=== PATIENT | female | born 1960 | race Caucasian/White ===

== ENCOUNTER → 2023-01-04 10:59 | Outpatient (CLI) | payer OTHER, SELFPAY ==
--- NOTE | ~2023-01-04 | MR_ITS ---
EXAMINATION: MR shoulder RT wo con DATE: 01/04/2023 11:37 INDICATION: One month of right shoulder pain. TECHNIQUE: Magnetic resonance imaging (MRI) of the right shoulder was performed without intravenous c ontrast. Sequences included axial PD-weighted FS FSE, coronal oblique PD-weighted FS FSE, coronal obl ique T2-weighted FS FSE, sagittal PD-weighted FS FSE, and sagittal T1-weighted SE. COMPARISON: Radiographs dated 12/21/2022 FINDINGS: Coracoacromial arch: The acromion undersurface is flat in morphology (type I). The coracoacromial ligament is normal. Mild acromioclavicular osteoarthritis. Rotator cuff: Mild supraspinatus and infraspinatus tendinopathy without discrete tear. Tiny focus of susceptibility artifact overlying the distal infraspinatus tendon which may be related to prior rotator cuff surger y. The subscapularis and teres minor tendons are normal. Normal rotator cuff muscle bulk and signal. Biceps tendon, glenoid labrum and glenohumeral cartilage: Long head of the biceps tendon is normal. Small tear at the 11:00-12:00 position of the superior marli oid labrum. Glenohumeral cartilage is normal. Fluid: Physiologic amount of fluid in the glenohumeral joint and biceps tendon sheath. No loose osteochondr al bodies. No abnormal fluid signal in the subacromial/subdeltoid bursa to suggest bursitis. Bones: Normal marrow signal with no edema, fracture or abnormal marrow replacing process. IMPRESSION: 1. Mild supraspinatus and infraspinatus tendinopathy without tear. 2. Small SLAP tear at the superior glenoid labrum. Reviewed, dictated and finalized at location B.
== END ==
PROVIDERS: PCP Nurse Practitioner; Visit Provider Orthopaedic Surgery
DX: M75.101 Unspecified rotator cuff tear or rupture of right shoulder, not specified as traumatic (principal); S43.431A Superior glenoid labrum lesion of right shoulder, initial encounter; X58.XXXA Exposure to other specified factors, initial encounter
CPT/HCPCS: 73221

== ENCOUNTER 2023-11-23 14:30 | Outpatient (RCR) | payer OTHER, SELFPAY ==
--- NOTE | 2023-10-26 16:19 | OPREHPOC ---
Outpatient Therapy Plan of Care This is a Multidisciplinary Plan of Care that may contain components documented by all disciplines (PT, OT, and ST.) PT Problem 1 PT Problem #1 Knowledge Deficit PT Goal 1 Goal *indep with HEP * correct shoulder position with exercises Target Visit 8 PT Problem 2 PT Problem #2 Pain PT Goal 1 Goal 1* pt report pain of 1/10 at worst with increase activity 2* Quick DASH self assessment rating of 6% limitation in activity level Target Visit 8 PT Problem 3 PT Problem #3 Impaired Strength PT Goal 1 Goal increase strength of R shoulder/scapula for improved activity level and position of GH joint: 1* prone scapular retraction with arm overhead x 20 reps 2* stand with correct shoulder position 3* standing shoulder flexion to 90' with 3# hand weight x 10 reps 4* pt report playing pickle ball for 20 minutes without problems Target Visit 8
--- NOTE | 2023-10-26 16:19 | PTOPEVAL1 ---
Assessment and note entered by Ryann Gage, PT Evaluation Information Assessment Status Evaluation Diagnosis R shoulder pain Onset about one year ago Subjective Information pain started in R shoulder about 1 year ago; worse about past 6 months, stopped playing pickle ball and less activity; had injection few weeks ago and shoulder pain is less; R hand dominant; Activity: retired; active lifestyle--watch grand children, play pickle ball; Reported Pain Level Pain Score Self Report Additional Pain Score Comments pain range in the past week 1-2/10; uncomfortable in upper traps; improved since injection; increase pain: lifting decrease pain: heat, sleeping OK now; tend to sleep on her R side, but does go onto L at time; reinforced use of heat/ice PRN; gradual increase in activity level, monitoring pain; with sitting, support to UE; not taking any meds for shoulder pain; Assessment PT Clinical Summary Kari has the diagnosis of R shoulder pain. Her MRI report states small SLAP lesion and tendonitis. In 2007 she had R shoulder surgery and did not have any issues with her R shoulder. She is retired, R hand dominant and has an active lifestyle. Quick DASH self rating of 14% limitation in activity. She has not played pickle ball in the past 6 months and avoided lifting and using R arm. The injection has eased her pain. With the evaluation: active ROM of her R shoulder is WNL and does not increase her pain; posture with rounded shoulders and R more forward; spasms and tenderness over R anterior proximal shoulder. Skilled PT services are indicated for modalities to decrease pain and spasms, therapeutic exercises to increase scapular strength and position/ posture of GH joint and education for home exercises and posture. Plan of Care Interventions Ignacia
--- NOTE | 2024-01-20 13:25 | PCPTNOTE ---
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 She then stopped attending therapy. The goals were not addressed. Discharge PT.
== END 2024-01-20 10:23 | disposition home or self-care (01) ==
LOC: ANHPT 14:30
PROVIDERS: PCP Nurse Practitioner; Visit Provider Orthopaedic Surgery
DX: M75.80 Other shoulder lesions, unspecified shoulder (principal); S43.431D Superior glenoid labrum lesion of right shoulder, subsequent encounter
CPT/HCPCS: 97035; 97110; 97140; 97161; 97530

== ENCOUNTER 2025-03-19 08:23 | Outpatient (CLI) | payer OTHER, SELFPAY ==
--- NOTE | ~2025-03-19 | MR_ITS ---
EXAMINATION: MR knee RT wo con DATE: 03/19/2025 09:15 INDICATION: Right knee pain TECHNIQUE: Magnetic resonance imaging (MRI) of the right knee was performed without intravenous contrast. Sequences included coronal PD-weighted FSE, coronal PD-weighted FS FSE, sagittal T2-weighted FSE, sagittal PD-weighted FS FSE and axial PD weighted fat saturated FSE. COMPARISON: None. FINDINGS: Medial compartment: Medial meniscus is normal. Diffuse mild partial-thickness cartilage loss with smooth chondral surface and without degenerative subchondral changes along the weightbearing medial femoral condyle and anterior medial tibial plateau. Lateral compartment: Lateral meniscus is normal. Additional mild partial-thickness cartilage loss with smooth chondral surface and without degenerative subchondral changes along the weightbearing lateral femoral condyle. Deep chondral fissuring with underlying subarticular cystlike and edema-like signal changes at the medial aspect of the lateral patellar facet thinning onto the shoulder the intercondylar eminence. Patellofemoral compartment: Small focus of additional deep chondral fissuring with underlying edema-like signal change at the cephalad aspect of the patellar apical ridge and immediately adjacent medial patellar facet. Partial-thickness chondral ulceration with small central subchondral osteophytes at the caudal aspect of the medial trochlea. Ligaments and tendons: Anterior and posterior cruciate ligaments are normal. The medial collateral ligament and fibular collateral ligament complex are normal. The extensor mechanism is normal. The visualized medial and lateral hamstring tendons as well as the iliotibial band are normal. Fluid: Physiologic amount of fluid in the joint space. No loose osteochondral bodies identified. Small Mera's cyst. Osseous/other: Normal marrow signal aside from the previous noted regions of subarticular edema-like signal change. No fracture or pathologic marrow replacing process. IMPRESSION: 1. 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 2. Small Mera's cyst. Reviewed, dictated and finalized at location A. IMPRESSION: 1. Mild tricompartmental osteoarthritis with small regions of high-grade chondr omalacia in the lateral and patellofemoral compartments. 2. Small Mera's cyst.
== END 2025-03-19 08:24 | disposition home or self-care (01) ==
PROVIDERS: PCP Nurse Practitioner; Visit Provider Nurse Practitioner Family
DX: M17.11 Unilateral primary osteoarthritis, right knee (principal); M71.21 Synovial cyst of popliteal space [Baker], right knee
CPT/HCPCS: 73721